=== PATIENT | male | born 1985 | race Hispanic/Latino ===

== ENCOUNTER 2020-03-09 11:15 | Outpatient (CLI) | payer MEDICAID ==
--- NOTE | 2020-03-09 14:08 | XRay Report ---
THORACIC SPINE 3 VIEWS INDICATION: PAIN IN THORACIC SPINE. COMPARISON: None. IMPRESSION: Normal alignment. No significant discogenic DJD or facet arthropathy. No acute osseous or soft tissue abnormality. LUMBOSACRAL SPINE 3 VIEWS INDICATION: PAIN IN THORACIC SPINE. COMPARISON: None. IMPRESSION: Normal alignment. There is minimal disc space narrowing at L5-S1. The remaining disc sp aces are normal height. Mild facet arthropathy is noted at L3-4 and L4-5. No acute osseous or soft t issue abnormality. Signer Name: Harley Meehan Jr, MD Signed: 03/09/2020 2:04 PM Workstation Name: [id number]
== END 2020-03-09 11:16 | disposition home or self-care (01) ==
LOC: SPVIMAG 11:15
DX: M48.07 Spinal stenosis, lumbosacral region (principal); M47.816 Spondylosis without myelopathy or radiculopathy, lumbar region; M54.6 Pain in thoracic spine
CPT/HCPCS: 72070; 72100